=== PATIENT | male | born 1940 | race Hispanic/Latino ===

== ENCOUNTER 2016-08-11 09:45 | Outpatient (CLI) | payer MEDICARE ==
[2016-08-11 10:46] LABS: ALT (SGPT) 11 U/L (0-55); AST (SGOT) 13 U/L (5-34); Albumin 4.2 g/dL (3.4-4.8); Alkaline Phosphatase 75 U/L (40-150); Anion Gap 15 mmol/L (10-20); BUN (Urea Nitrogen) 14 mg/dL (8.4-25.7); Bilirubin, Total 0.4 mg/dL (0.2-1.2); Calc. Creatinine Clearance 0 mL/min (70-130); Calcium 9.4 mg/dL (7.8-10.44); Carbon Dioxide 27 mmol/L (23-31); Cardiac Risk 3.9 (Less than 4.5); Chloride 98 mmol/L (98-107); Cholesterol 106 mg/dL (< 200 Desired); Estimated GFR-MDRD 67; Globulin 3.3 g/dL (2.4-3.5); Glucose 169 mg/dL (83-110); HDL Cholesterol 27 mg/dL (>60 Neg Risk); LDL Cholesterol, Calculated 56 mg/dL; Potassium 4.6 mmol/L (3.5-5.1); Protein, Total 7.5 g/dL (5.8-8.1); Sodium 135 mmol/L (136-145); Triglycerides 116 mg/dL (Less than 150)
[2016-08-11 10:50] LABS: #Basophils 0.1 thou/uL (0.0-0.2); #Eosinphils 0.2 thou/uL (0.0-0.7); #Lymphocytes 2.4 thou/uL (1.20-3.40); #Monocytes 0.6 thou/uL (0.11-0.59); #Neutrophils 3.8 thou/uL (1.40-6.50); %Basophils 0.8 % (0.0-1.0); %Eosinophils 2.8 % (0.0-10.0); %Lymphocytes 33.7 % (21.0-51.0); %Monocytes 8.3 % (0.0-10.0); %Neutrophils 54.4 % (42.0-75.0); Hemoglobin 12.4 g/dL (14.0-18.0); Mean Corpuscular HGB CONC 33.3 g/dL (32.0-36.0); Mean Corpuscular Hemoglobin 28.9 pg (27.0-31.0); Mean Corpuscular Volume 86.8 fl (80.0-94.0); Mean Platelet Volume 7.2 fL (7.4-10.4); Platelet Count 329 thou/uL (130-400); RBC Distribution Width 13.1 % (11.5-14.5)
[2016-08-11 11:26] LABS: Hemoglobin A1c 7.9 % (4.0-6.0)
== END 2016-08-11 09:46 | disposition home or self-care (01) ==
LOC: HPCALD 09:45
PROVIDERS: ATTEND Family Medicine
DX: E11.9 Type 2 diabetes mellitus without complications (principal); I10 Essential (primary) hypertension; E78.5 Hyperlipidemia, unspecified
CPT/HCPCS: 36415; 80053; 80061; 83036; 85025

== ENCOUNTER 2019-04-02 13:33 | Inpatient (IN) | payer MEDICARE ==
[2019-04-02] MEDS ORDERED: Amlodipine 5 MG TAB PO SCH (15:45)
[2019-04-02] MEDS ORDERED: cloNIDine 0.1 MG TAB PO SCH (15:45)
[2019-04-02 15:59] VITALS: BMI 21.2
[2019-04-02] MEDS ORDERED: Gabapentin 300 MG CAP PO PRN (16:38)
[2019-04-02] MEDS: metFORMIN 500 MG TAB PO SCH (18:36)
[2019-04-02] MEDS ORDERED: Dextrose 5% in Water 1,000 ML IV PRN (18:45)
[2019-04-02] MEDS ORDERED: Dextrose 50% Abboject 50 ML SYRINGE IVP PRN (18:45)
[2019-04-02] MEDS: HumaLOG 300 UNITS/3 ML VIAL SC PRN ×2 (19:09→22:12)
[2019-04-02] MEDS: Lisinopril 20 MG TAB PO SCH (21:12)
[2019-04-02] MEDS: Atorvastatin Calcium 10 MG TAB PO SCH (21:12)
[2019-04-02] MEDS: Metoprolol Tartrate 25 MG TAB PO SCH (21:13)
[2019-04-03] MEDS: cloNIDine 0.1 MG TAB PO PRN (06:21)
[2019-04-03] MEDS: HumaLOG 300 UNITS/3 ML VIAL SC PRN ×3 (08:24→17:28)
[2019-04-03] MEDS: Lantus 1000 UNITS/10 ML VIAL SC SCH (08:58)
[2019-04-03] MEDS: metFORMIN 500 MG TAB PO SCH ×2 (09:01→17:02)
[2019-04-03] MEDS: Lisinopril 20 MG TAB PO SCH ×2 (09:02→21:01)
[2019-04-03] MEDS: Metoprolol Tartrate 25 MG TAB PO SCH ×2 (09:03→21:01)
[2019-04-03] MEDS: Amlodipine 5 MG TAB PO SCH (09:03)
[2019-04-03] MEDS: Atorvastatin Calcium 10 MG TAB PO SCH (21:02)
[2019-04-04] MEDS: Lisinopril 20 MG TAB PO SCH ×2 (08:56→20:49)
[2019-04-04] MEDS: Metoprolol Tartrate 25 MG TAB PO SCH ×2 (08:56→20:49)
[2019-04-04] MEDS: metFORMIN 500 MG TAB PO SCH ×2 (08:56→17:10)
[2019-04-04] MEDS: Amlodipine 5 MG TAB PO SCH (08:57)
[2019-04-04] MEDS: Lantus 1000 UNITS/10 ML VIAL SC SCH (08:58)
[2019-04-04] MEDS: HumaLOG 300 UNITS/3 ML VIAL SC PRN ×4 (09:03→20:56)
[2019-04-04] MEDS: Atorvastatin Calcium 10 MG TAB PO SCH (20:49)
[2019-04-05] MEDS: cloNIDine 0.1 MG TAB PO PRN (06:17)
[2019-04-05] MEDS ORDERED: Lantus 1000 UNITS/10 ML VIAL SC SCH (09:00)
[2019-04-05] MEDS: metFORMIN 500 MG TAB PO SCH ×2 (09:21→17:54)
[2019-04-05] MEDS: Lisinopril 20 MG TAB PO SCH ×2 (09:23→20:41)
[2019-04-05] MEDS: Metoprolol Tartrate 25 MG TAB PO SCH ×2 (09:23→20:40)
[2019-04-05] MEDS: HumaLOG 300 UNITS/3 ML VIAL SC PRN ×4 (09:24→21:02)
[2019-04-05] MEDS: Amlodipine 5 MG TAB PO SCH (09:24)
[2019-04-05] MEDS: Atorvastatin Calcium 10 MG TAB PO SCH (20:40)
[2019-04-06 06:08] VITALS: BP 160/67; TEMP 98
[2019-04-06] MEDS: Lisinopril 20 MG TAB PO SCH (08:37)
[2019-04-06] MEDS: Amlodipine 5 MG TAB PO SCH (08:37)
[2019-04-06] MEDS: metFORMIN 500 MG TAB PO SCH (08:38)
[2019-04-06] MEDS: HumaLOG 300 UNITS/3 ML VIAL SC PRN (08:39)
[2019-04-06] MEDS ORDERED: Lantus 1000 UNITS/10 ML VIAL SC SCH (09:00)
[2019-04-06] MEDS: Metoprolol Tartrate 25 MG TAB PO SCH (09:12)
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
== END 2019-04-06 12:20 | disposition home or self-care (01) | DRG 950 ==
LOC: BURMED 14:25
PROVIDERS: ADMIT Family Medicine; ATTEND Family Medicine
DX: S06.6X0D Traumatic subarachnoid hemorrhage without loss of consciousness, subsequent encounter (principal); Z79.4 Long term (current) use of insulin; Z91.14 Patient's other noncompliance with medication regimen; V89.2XXD Person injured in unspecified motor-vehicle accident, traffic, subsequent encounter; R53.81 Other malaise; Z90.49 Acquired absence of other specified parts of digestive tract; Z79.82 Long term (current) use of aspirin; Z79.84 Long term (current) use of oral hypoglycemic drugs; E11.65 Type 2 diabetes mellitus with hyperglycemia; I25.2 Old myocardial infarction
CPT/HCPCS: 36416; J1815

== ENCOUNTER 2019-09-15 20:25 | Emergency (ER) | payer MEDICARE ==
[2019-09-15] MEDS ORDERED: Adacel (T-DAP) 0.5 ML SYRINGE ONE (21:06)
[2019-09-15] MEDS ORDERED: Lidocaine 2% PF 5 ML VIAL ONE (21:06)
[2019-09-15] MEDS ORDERED: Bacitracin 1 PK ONE (21:06)
[2019-09-15] MEDS ORDERED: Cephalexin 250 MG CAP ONE (21:47)
== END 2019-09-15 21:47 | disposition home or self-care (01) ==
LOC: BURERS 20:25
DX: S61.216A Laceration without foreign body of right little finger without damage to nail, initial encounter (principal); I25.2 Old myocardial infarction; E11.9 Type 2 diabetes mellitus without complications; E78.5 Hyperlipidemia, unspecified; I10 Essential (primary) hypertension; Z23 Encounter for immunization; Z79.4 Long term (current) use of insulin; W26.8XXA Contact with other sharp object(s), not elsewhere classified, initial encounter
CPT/HCPCS: 12002; 90471; 90715; J2001

== ENCOUNTER 2020-12-02 23:49 | Inpatient (IN) | payer MEDICARE ==
[2020-12-03] MEDS ORDERED: Acetaminophen 325 MG TAB PO PRN (07:49)
[2020-12-03] MEDS ORDERED: Dextrose 5% in Water 1,000 ML IV PRN (07:55)
[2020-12-03] MEDS ORDERED: Dextrose 50% Abboject 50 ML SYRINGE SLOW IVP PRN (07:55)
[2020-12-03] MEDS: Lisinopril 20 MG TAB PO SCH ×2 (10:43→11:24)
[2020-12-03] MEDS: levETIRAcetam 250 MG TAB PO SCH ×2 (10:44→11:24)
[2020-12-03] MEDS: Metoprolol Tartrate 50 MG TAB PO SCH ×2 (10:44→11:25)
[2020-12-03] MEDS: Lantus 1000 UNITS/10 ML VIAL SC SCH (11:41)
[2020-12-03] MEDS: NIFEdipine XL 30 MG TAB PO SCH ×2 (12:06→14:10)
[2020-12-03] MEDS: HumaLOG 300 UNITS/3 ML VIAL SC PRN ×3 (12:15→21:05)
[2020-12-03] MEDS ORDERED: Metoprolol Tartrate 50 MG TAB PER TUBE SCH ×2 (13:15→21:00)
[2020-12-03] MEDS ORDERED: Lisinopril 20 MG TAB PER TUBE SCH (13:15)
[2020-12-03] MEDS ORDERED: levETIRAcetam 500 mg/5 ml Oral Solution PER TUBE SCH (13:15)
[2020-12-03] MEDS: Lisinopril 20 MG TAB PER TUBE SCH ×2 (14:11→20:57)
[2020-12-03 14:45] VITALS: BMI 22.7
[2020-12-03] MEDS ORDERED: cloNIDine 0.1 MG TAB PER TUBE PRN (19:20)
[2020-12-03] MEDS: Metoprolol Tartrate 50 MG TAB PER TUBE SCH (20:57)
[2020-12-03] MEDS: Atorvastatin Calcium 10 MG TAB PER TUBE SCH (20:58)
[2020-12-03] MEDS: levETIRAcetam 500 mg/5 ml Oral Solution PER TUBE SCH (20:58)
[2020-12-03] MEDS ORDERED: Atorvastatin Calcium 10 MG TAB PO SCH (21:00)
[2020-12-03 22:52] LABS: SARS-CoV-2 PCR by NAA Not Detected (NotDetected)
[2020-12-04] MEDS: Lantus 1000 UNITS/10 ML VIAL SC SCH (11:17)
[2020-12-04] MEDS: Pantoprazole 40 MG GRANULES PACKET PER TUBE SCH (11:18)
[2020-12-04] MEDS: Metoprolol Tartrate 50 MG TAB PER TUBE SCH ×3 (11:19→21:39)
[2020-12-04] MEDS: Lisinopril 20 MG TAB PER TUBE SCH ×2 (11:20→21:42)
[2020-12-04] MEDS: HumaLOG 300 UNITS/3 ML VIAL SC PRN ×4 (11:20→21:44)
[2020-12-04] MEDS: levETIRAcetam 500 mg/5 ml Oral Solution PER TUBE SCH ×2 (11:20→21:34)
[2020-12-04] MEDS: NIFEdipine XL 30 MG TAB PO SCH (11:55)
[2020-12-04] MEDS: Atorvastatin Calcium 10 MG TAB PER TUBE SCH (21:34)
[2020-12-05 05:01] LABS: #Basophils 0.1 thou/uL (0.0-0.2); #Eosinphils 0.4 thou/uL (0.0-0.7); #Lymphocytes 1.6 thou/uL (1.20-3.40); #Monocytes 0.8 thou/uL (0.11-0.59); %Basophils 0.8 % (0.0-1.0); %Eosinophils 2.9 % (0.0-10.0); %Lymphocytes 12.7 % (21.0-51.0); %Monocytes 6.2 % (0.0-10.0); %Neutrophils 77.4 % (42.0-75.0); Hemoglobin 12.2 g/dL (14.0-18.0); Mean Corpuscular HGB CONC 31.9 g/dL (32.0-36.0); Mean Corpuscular Hemoglobin 27.2 pg (27.0-31.0); Mean Corpuscular Volume 85.3 fL (78.0-98.0); Mean Platelet Volume 7.4 fL (7.4-10.4); Platelet Count 325 thou/uL (130-400); RBC Distribution Width 13.7 % (11.5-14.5); Red Blood Cell (RBC) Count 4.48 mill/uL (4.70-6.10); White Blood Cell (WBC) Count 12.9 thou/uL (4.8-10.8)
[2020-12-05 05:15] LABS: ALT (SGPT) 49 U/L (8-55); AST (SGOT) 35 U/L (5-34); Albumin 3.3 g/dL (3.4-4.8); Alkaline Phosphatase 160 U/L (40-110); Anion Gap 16 mmol/L (10-20); BUN (Urea Nitrogen) 45 mg/dL (8.4-25.7); Bilirubin, Total 0.5 mg/dL (0.2-1.2); Calc. Creatinine Clearance 44 mL/min (70-130); Calcium 9.2 mg/dL (7.8-10.44); Carbon Dioxide 26 mmol/L (23-31); Chloride 102 mmol/L (98-107); Globulin 3.5 g/dL (2.4-3.5); Glucose 353 mg/dL (83-110); Potassium 4.4 mmol/L (3.5-5.1); Protein, Total 6.8 g/dL (5.8-8.1); Sodium 140 mmol/L (136-145)
[2020-12-05] MEDS: Lantus 1000 UNITS/10 ML VIAL SC SCH (09:21)
[2020-12-05] MEDS: levETIRAcetam 500 mg/5 ml Oral Solution PER TUBE SCH ×2 (09:23→20:43)
[2020-12-05] MEDS: Metoprolol Tartrate 50 MG TAB PER TUBE SCH ×2 (09:23→20:44)
[2020-12-05] MEDS: Lisinopril 20 MG TAB PER TUBE SCH ×2 (09:23→20:44)
[2020-12-05] MEDS: Pantoprazole 40 MG GRANULES PACKET PER TUBE SCH (09:24)
[2020-12-05] MEDS: HumaLOG 300 UNITS/3 ML VIAL SC PRN ×4 (09:25→20:45)
[2020-12-05] MEDS: NIFEdipine XL 30 MG TAB PO SCH (12:11)
[2020-12-05] MEDS: Atorvastatin Calcium 10 MG TAB PER TUBE SCH (20:44)
[2020-12-06] MEDS: Metoprolol Tartrate 50 MG TAB PER TUBE SCH ×2 (09:15→20:48)
[2020-12-06] MEDS: levETIRAcetam 500 mg/5 ml Oral Solution PER TUBE SCH ×2 (09:15→20:48)
[2020-12-06] MEDS: Pantoprazole 40 MG GRANULES PACKET PER TUBE SCH (09:15)
[2020-12-06] MEDS: Lantus 1000 UNITS/10 ML VIAL SC SCH (09:17)
[2020-12-06] MEDS: HumaLOG 300 UNITS/3 ML VIAL SC PRN ×3 (09:30→21:03)
[2020-12-06] MEDS: Lisinopril 20 MG TAB PER TUBE SCH ×2 (09:30→20:48)
[2020-12-06] MEDS: NIFEdipine XL 30 MG TAB PO SCH (17:05)
[2020-12-06] MEDS: Atorvastatin Calcium 10 MG TAB PER TUBE SCH (20:48)
[2020-12-07] MEDS: Lisinopril 20 MG TAB PER TUBE SCH ×2 (08:16→20:08)
[2020-12-07] MEDS: Acetaminophen 650 MG Suppository PR PRN (08:26)
[2020-12-07] MEDS: Amlodipine 5 MG TAB PO SCH (08:35)
[2020-12-07] MEDS: levETIRAcetam 500 mg/5 ml Oral Solution PER TUBE SCH ×2 (08:35→20:07)
[2020-12-07] MEDS: Pantoprazole 40 MG GRANULES PACKET PER TUBE SCH (08:35)
[2020-12-07] MEDS: Metoprolol Tartrate 50 MG TAB PER TUBE SCH ×2 (08:35→20:07)
[2020-12-07] MEDS: Lantus 1000 UNITS/10 ML VIAL SC SCH (08:36)
[2020-12-07] MEDS: HumaLOG 300 UNITS/3 ML VIAL SC PRN ×3 (08:37→20:06)
[2020-12-07] MEDS: Cefepime 1 GM in Sodium Chloride 0.9% 100 ML IVPB SCH (17:11)
[2020-12-07] MEDS: Atorvastatin Calcium 10 MG TAB PER TUBE SCH (20:08)
[2020-12-08] MEDS: Cefepime 1 GM in Sodium Chloride 0.9% 100 ML IVPB SCH ×3 (01:25→17:23)
[2020-12-08] MEDS: Metoprolol Tartrate 50 MG TAB PER TUBE SCH ×2 (08:25→21:11)
[2020-12-08] MEDS: Pantoprazole 40 MG GRANULES PACKET PER TUBE SCH (08:25)
[2020-12-08] MEDS: Lisinopril 20 MG TAB PER TUBE SCH ×2 (08:25→21:11)
[2020-12-08] MEDS: Amlodipine 5 MG TAB PO SCH (08:25)
[2020-12-08] MEDS: Lantus 1000 UNITS/10 ML VIAL SC SCH (08:26)
[2020-12-08] MEDS: levETIRAcetam 500 mg/5 ml Oral Solution PER TUBE SCH ×2 (08:26→21:11)
[2020-12-08] MEDS: HumaLOG 300 UNITS/3 ML VIAL SC PRN ×4 (08:27→21:24)
[2020-12-08] MEDS: Atorvastatin Calcium 10 MG TAB PER TUBE SCH (21:11)
[2020-12-09] MEDS: Cefepime 1 GM in Sodium Chloride 0.9% 100 ML IVPB SCH ×3 (02:23→17:22)
[2020-12-09] MEDS: Acetaminophen 650 MG Suppository PR PRN (05:05)
[2020-12-09] MEDS: Amlodipine 5 MG TAB PO SCH (09:11)
[2020-12-09] MEDS: Lisinopril 20 MG TAB PER TUBE SCH ×2 (09:11→20:46)
[2020-12-09] MEDS: Pantoprazole 40 MG GRANULES PACKET PER TUBE SCH (09:12)
[2020-12-09] MEDS: Metoprolol Tartrate 50 MG TAB PER TUBE SCH ×2 (09:12→20:48)
[2020-12-09] MEDS: levETIRAcetam 500 mg/5 ml Oral Solution PER TUBE SCH ×2 (09:12→20:43)
[2020-12-09] MEDS: HumaLOG 300 UNITS/3 ML VIAL SC PRN ×4 (09:13→21:53)
[2020-12-09] MEDS: Lantus 1000 UNITS/10 ML VIAL SC SCH (09:13)
[2020-12-09] MEDS: Atorvastatin Calcium 10 MG TAB PER TUBE SCH (20:44)
[2020-12-10] MEDS: Cefepime 1 GM in Sodium Chloride 0.9% 100 ML IVPB SCH ×3 (02:38→17:47)
[2020-12-10] MEDS: Metoprolol Tartrate 50 MG TAB PER TUBE SCH ×2 (10:33→20:49)
[2020-12-10] MEDS: Pantoprazole 40 MG GRANULES PACKET PER TUBE SCH (10:34)
[2020-12-10] MEDS: levETIRAcetam 500 mg/5 ml Oral Solution PER TUBE SCH ×2 (10:34→20:48)
[2020-12-10] MEDS: Amlodipine 5 MG TAB PO SCH (10:35)
[2020-12-10] MEDS: Lisinopril 20 MG TAB PER TUBE SCH ×2 (10:35→20:49)
[2020-12-10] MEDS: HumaLOG 300 UNITS/3 ML VIAL SC PRN ×4 (10:35→21:02)
[2020-12-10] MEDS: Lantus 1000 UNITS/10 ML VIAL SC SCH (10:36)
[2020-12-10] MEDS: Atorvastatin Calcium 10 MG TAB PER TUBE SCH (20:49)
[2020-12-11] MEDS: Cefepime 1 GM in Sodium Chloride 0.9% 100 ML IVPB SCH ×3 (02:23→18:11)
[2020-12-11] MEDS: Metoprolol Tartrate 50 MG TAB PER TUBE SCH ×2 (09:00→22:03)
[2020-12-11] MEDS: Lisinopril 20 MG TAB PER TUBE SCH ×2 (09:02→22:03)
[2020-12-11] MEDS: Amlodipine 5 MG TAB PO SCH (09:02)
[2020-12-11] MEDS: Pantoprazole 40 MG GRANULES PACKET PER TUBE SCH (09:03)
[2020-12-11] MEDS: levETIRAcetam 500 mg/5 ml Oral Solution PER TUBE SCH ×2 (09:03→22:03)
[2020-12-11] MEDS: Lantus 1000 UNITS/10 ML VIAL SC SCH (09:03)
[2020-12-11] MEDS: HumaLOG 300 UNITS/3 ML VIAL SC PRN ×4 (09:08→22:04)
[2020-12-11 18:39] LABS: SARS-CoV-2 PCR by NAA Not Detected (NotDetected)
[2020-12-11] MEDS: Atorvastatin Calcium 10 MG TAB PER TUBE SCH (22:04)
[2020-12-12] MEDS: Cefepime 1 GM in Sodium Chloride 0.9% 100 ML IVPB SCH (02:05)
[2020-12-12] MEDS: Pantoprazole 40 MG GRANULES PACKET PER TUBE SCH (09:03)
[2020-12-12] MEDS: levETIRAcetam 500 mg/5 ml Oral Solution PER TUBE SCH ×2 (09:03→21:12)
[2020-12-12] MEDS: Amlodipine 5 MG TAB PO SCH (09:03)
[2020-12-12] MEDS: Lisinopril 20 MG TAB PER TUBE SCH ×2 (09:04→21:12)
[2020-12-12] MEDS: Lantus 1000 UNITS/10 ML VIAL SC SCH (09:04)
[2020-12-12] MEDS: Metoprolol Tartrate 50 MG TAB PER TUBE SCH ×2 (09:04→21:12)
[2020-12-12] MEDS: HumaLOG 300 UNITS/3 ML VIAL SC PRN ×4 (09:05→21:13)
[2020-12-12] MEDS: Atorvastatin Calcium 10 MG TAB PER TUBE SCH (21:12)
[2020-12-13] MEDS: levETIRAcetam 500 mg/5 ml Oral Solution PER TUBE SCH ×2 (10:04→20:31)
[2020-12-13] MEDS: Metoprolol Tartrate 50 MG TAB PER TUBE SCH ×2 (10:04→20:32)
[2020-12-13] MEDS: Lisinopril 20 MG TAB PER TUBE SCH ×2 (10:05→20:32)
[2020-12-13] MEDS: Amlodipine 5 MG TAB PO SCH (10:05)
[2020-12-13] MEDS: Pantoprazole 40 MG GRANULES PACKET PER TUBE SCH (10:06)
[2020-12-13] MEDS: Lantus 1000 UNITS/10 ML VIAL SC SCH (10:07)
[2020-12-13] MEDS: HumaLOG 300 UNITS/3 ML VIAL SC PRN ×3 (13:15→20:32)
[2020-12-13] MEDS: Atorvastatin Calcium 10 MG TAB PER TUBE SCH (20:32)
[2020-12-14] MEDS: levETIRAcetam 500 mg/5 ml Oral Solution PER TUBE SCH ×2 (09:13→22:38)
[2020-12-14] MEDS: Pantoprazole 40 MG GRANULES PACKET PER TUBE SCH (09:13)
[2020-12-14] MEDS: Amlodipine 5 MG TAB PO SCH (09:13)
[2020-12-14] MEDS: Metoprolol Tartrate 50 MG TAB PER TUBE SCH ×2 (09:13→22:38)
[2020-12-14] MEDS: Lantus 1000 UNITS/10 ML VIAL SC SCH (09:14)
[2020-12-14] MEDS: Lisinopril 20 MG TAB PER TUBE SCH ×2 (09:14→22:38)
[2020-12-14] MEDS: HumaLOG 300 UNITS/3 ML VIAL SC PRN ×3 (13:50→23:23)
[2020-12-14] MEDS: Atorvastatin Calcium 10 MG TAB PER TUBE SCH (22:38)
[2020-12-15] MEDS: levETIRAcetam 500 mg/5 ml Oral Solution PER TUBE SCH ×2 (09:21→21:01)
[2020-12-15] MEDS: HumaLOG 300 UNITS/3 ML VIAL SC PRN ×2 (09:21→12:50)
[2020-12-15] MEDS: Metoprolol Tartrate 50 MG TAB PER TUBE SCH ×2 (09:22→21:02)
[2020-12-15] MEDS: Pantoprazole 40 MG GRANULES PACKET PER TUBE SCH (09:22)
[2020-12-15] MEDS: Lantus 1000 UNITS/10 ML VIAL SC SCH (09:22)
[2020-12-15] MEDS: Lisinopril 20 MG TAB PER TUBE SCH ×2 (09:23→23:02)
[2020-12-15] MEDS: Amlodipine 5 MG TAB PO SCH (09:23)
[2020-12-15] MEDS: Atorvastatin Calcium 10 MG TAB PER TUBE SCH (21:01)
[2020-12-16] MEDS: levETIRAcetam 500 mg/5 ml Oral Solution PER TUBE SCH (10:10)
[2020-12-16] MEDS: Lantus 1000 UNITS/10 ML VIAL SC SCH (10:10)
[2020-12-16] MEDS: Metoprolol Tartrate 50 MG TAB PER TUBE SCH (10:11)
[2020-12-16] MEDS: Lisinopril 20 MG TAB PER TUBE SCH (10:11)
[2020-12-16] MEDS: Pantoprazole 40 MG GRANULES PACKET PER TUBE SCH (10:11)
[2020-12-16] MEDS: Amlodipine 5 MG TAB PO SCH (10:12)
[2020-12-16] MEDS: HumaLOG 300 UNITS/3 ML VIAL SC PRN (12:12)
[2020-12-16 15:55] VITALS: BP 106/59; TEMP 97.7
== END 2020-12-16 17:35 | DRG 57 ==
LOC: BURMED 23:49
PROVIDERS: ADMIT Family Medicine; ATTEND Family Medicine
DX: I69.354 Hemiplegia and hemiparesis following cerebral infarction affecting left non-dominant side (principal); F01.51 Vascular dementia, unspecified severity, with behavioral disturbance; I25.10 Atherosclerotic heart disease of native coronary artery without angina pectoris; N18.30 Chronic kidney disease, stage 3 unspecified; I12.9 Hypertensive chronic kidney disease with stage 1 through stage 4 chronic kidney disease, or unspecified chronic kidney disease; E11.22 Type 2 diabetes mellitus with diabetic chronic kidney disease
CPT/HCPCS: 36415; 36416; 71045; 80053; 85025; J0692; J1815; J3490; U0003; U0005

== ENCOUNTER 2020-12-07 08:54 | Emergency (ER) | payer MEDICARE ==
[2020-12-07 09:13] LABS: #Basophils 0.1 thou/uL (0.0-0.2); #Eosinphils 0.2 thou/uL (0.0-0.7); #Lymphocytes 1.6 thou/uL (1.20-3.40); #Monocytes 0.8 thou/uL (0.11-0.59); #Neutrophils 8.2 thou/uL (1.40-6.50); %Basophils 0.8 % (0.0-1.0); %Eosinophils 1.5 % (0.0-10.0); %Lymphocytes 14.7 % (21.0-51.0); %Monocytes 7.6 % (0.0-10.0); %Neutrophils 75.4 % (42.0-75.0); Hemoglobin 12.3 g/dL (14.0-18.0); Mean Corpuscular HGB CONC 32.5 g/dL (32.0-36.0); Mean Corpuscular Hemoglobin 27.4 pg (27.0-31.0); Mean Corpuscular Volume 84.5 fL (78.0-98.0); Mean Platelet Volume 8.2 fL (7.4-10.4); Platelet Count 371 thou/uL (130-400); RBC Distribution Width 13.1 % (11.5-14.5); White Blood Cell (WBC) Count 10.8 thou/uL (4.8-10.8)
[2020-12-07] MEDS ORDERED: Sodium Chloride 0.9% 100 ML ONE (09:24)
[2020-12-07] MEDS ORDERED: Cefepime 2 GM VIAL ONE (09:24)
[2020-12-07 09:31] LABS: ALT (SGPT) 57 U/L (8-55); AST (SGOT) 42 U/L (5-34); Alkaline Phosphatase 125 U/L (40-110); Anion Gap 15 mmol/L (10-20); BUN (Urea Nitrogen) 38 mg/dL (8.4-25.7); Bilirubin, Total 0.5 mg/dL (0.2-1.2); Calc. Creatinine Clearance 0 mL/min (70-130); Calcium 8.6 mg/dL (7.8-10.44); Carbon Dioxide 27 mmol/L (23-31); Chloride 98 mmol/L (98-107); Globulin 4.1 g/dL (2.4-3.5); Glucose 382 mg/dL (83-110); Potassium 5.4 mmol/L (3.5-5.1); Protein, Total 7.1 g/dL (5.8-8.1); Sodium 135 mmol/L (136-145)
[2020-12-07 10:14] LABS: Bilirubin Negative (Negative); Blood, Urine Negative (Negative); Clarity Clear (Clear); Glucose, Urine (Dipstick) 500 mg/dL (Negative); Ketone, Urine Negative (Negative); Leukocyte Negative (Negative); Nitrite Negative (Negative); Protein, Urine (Dipstick) 30 mg/dL (Neg-Trace); Specific Gravity, Urine 1.015 (1.005-1.030); Urobilinogen 0.2 mg/dL (Less than 2)
[2020-12-07 10:22] LABS: Bacteria/HPF Rare-Few HPF (None Seen); RBC/HPF 0-3 HPF (0-3); WBC/HPF 0-3 HPF (0-3)
[2020-12-07 12:07] LABS: SARS-CoV-2 NAA Rapid Test Not Detected (NotDetected)
== END 2020-12-07 12:40 | disposition critical access hospital (66) ==
LOC: BURERS 08:54
DX: R50.9 Fever, unspecified (principal); I25.2 Old myocardial infarction; E11.9 Type 2 diabetes mellitus without complications; I10 Essential (primary) hypertension; E78.5 Hyperlipidemia, unspecified; I25.10 Atherosclerotic heart disease of native coronary artery without angina pectoris; Z79.4 Long term (current) use of insulin; Z20.822 Contact with and (suspected) exposure to COVID-19; Z87.891 Personal history of nicotine dependence; Z79.899 Other long term (current) drug therapy
CPT/HCPCS: 36415; 36416; 71045; 80053; 81003; 81015; 83605; 83880; 84484; 85025; 87040; 87086; 93005; 96365; J0692; J3490; U0002

== ENCOUNTER 2021-01-18 22:28 | Outpatient (CLI) | payer MEDICARE ==
[2021-01-18 22:44] LABS: Bilirubin Negative (Negative); Blood, Urine Large (Negative); Clarity Clear (Clear); Glucose, Urine (Dipstick) Negative (Negative); Ketone, Urine Negative (Negative); Leukocyte Negative (Negative); Nitrite Negative (Negative); Protein, Urine (Dipstick) > or equal to 300 mg/dL (Neg-Trace)
== END 2021-01-18 22:29 | disposition home or self-care (01) ==
LOC: BURMANOR 22:28
PROVIDERS: ATTEND Family Medicine
DX: N18.30 Chronic kidney disease, stage 3 unspecified (principal)
CPT/HCPCS: 81003; 87086

== ENCOUNTER 2021-06-25 16:35 | Outpatient (CLI) | payer MEDICARE ==
[2021-06-25 16:44] LABS: Bilirubin Negative (Negative); Blood, Urine Negative (Negative); Clarity Clear (Clear); Glucose, Urine (Dipstick) Negative (Negative); Ketone, Urine Trace mg/dL (Negative); Leukocyte Negative (Negative); Nitrite Negative (Negative); Protein, Urine (Dipstick) Negative (Neg-Trace); Specific Gravity, Urine 1.015 (1.005-1.030); pH, Urine 5.5 (5.0-9.0)
== END 2021-06-25 16:36 | disposition home or self-care (01) ==
LOC: BURMANOR 16:35
PROVIDERS: ATTEND Nurse Practitioner Family
DX: R41.82 Altered mental status, unspecified (principal)
CPT/HCPCS: 81003

== ENCOUNTER 2021-07-20 12:33 | Outpatient (CLI) | payer MEDICARE ==
[2021-07-20 13:04] LABS: Mean Corpuscular Hemoglobin 27.7 pg (27.0-31.0); Mean Corpuscular Volume 83.9 fL (78.0-98.0); Mean Platelet Volume 8.1 fL (7.4-10.4); Platelet Count 333 thou/uL (130-400); RBC Distribution Width 14.1 % (11.5-14.5); Red Blood Cell (RBC) Count 3.97 mill/uL (4.70-6.10); White Blood Cell (WBC) Count 9.5 thou/uL (4.8-10.8)
[2021-07-20 13:36] LABS: ALT (SGPT) 22 U/L (8-55); AST (SGOT) 19 U/L (5-34); Albumin 3.4 g/dL (3.4-4.8); Alkaline Phosphatase 139 U/L (40-110); Anion Gap 17 mmol/L (10-20); BUN (Urea Nitrogen) 70 mg/dL (8.4-25.7); Bilirubin, Total 0.3 mg/dL (0.2-1.2); Calc. Creatinine Clearance 0 mL/min (70-130); Calcium 8.9 mg/dL (7.8-10.44); Carbon Dioxide 28 mmol/L (23-31); Chloride 96 mmol/L (98-107); Globulin 3.5 g/dL (2.4-3.5); Glucose 153 mg/dL (83-110); Potassium 5.4 mmol/L (3.5-5.1); Protein, Total 6.9 g/dL (5.8-8.1); Sodium 136 mmol/L (136-145)
== END 2021-07-20 12:34 | disposition home or self-care (01) ==
LOC: BURMANOR 12:33
PROVIDERS: ATTEND Nurse Practitioner Family
DX: L97.511 Non-pressure chronic ulcer of other part of right foot limited to breakdown of skin (principal); I25.10 Atherosclerotic heart disease of native coronary artery without angina pectoris
CPT/HCPCS: 80053; 85027

== ENCOUNTER 2021-07-22 08:07 | Outpatient (CLI) | payer MEDICARE ==
[2021-07-22 08:18] LABS: Hemoglobin 10.4 g/dL (14.0-18.0); Mean Corpuscular HGB CONC 33.1 g/dL (32.0-36.0); Mean Corpuscular Hemoglobin 27.2 pg (27.0-31.0); Mean Platelet Volume 8.1 fL (7.4-10.4); Platelet Count 285 thou/uL (130-400); RBC Distribution Width 14.1 % (11.5-14.5); Red Blood Cell (RBC) Count 3.83 mill/uL (4.70-6.10); White Blood Cell (WBC) Count 9.9 thou/uL (4.8-10.8)
[2021-07-22 08:33] LABS: ALT (SGPT) 21 U/L (8-55); AST (SGOT) 18 U/L (5-34); Albumin 3.1 g/dL (3.4-4.8); Alkaline Phosphatase 165 U/L (40-110); Anion Gap 14 mmol/L (10-20); BUN (Urea Nitrogen) 64 mg/dL (8.4-25.7); Bilirubin, Total 0.2 mg/dL (0.2-1.2); Calc. Creatinine Clearance 0 mL/min (70-130); Calcium 8.6 mg/dL (7.8-10.44); Carbon Dioxide 31 mmol/L (23-31); Chloride 98 mmol/L (98-107); Globulin 3.4 g/dL (2.4-3.5); Glucose 82 mg/dL (83-110); Potassium 4.1 mmol/L (3.5-5.1); Protein, Total 6.5 g/dL (5.8-8.1); Sodium 139 mmol/L (136-145)
== END 2021-07-22 08:08 | disposition home or self-care (01) ==
LOC: BURMANOR 08:07
PROVIDERS: ATTEND Nurse Practitioner Family
DX: Z01.812 Encounter for preprocedural laboratory examination (principal); E87.5 Hyperkalemia; Z20.822 Contact with and (suspected) exposure to COVID-19
CPT/HCPCS: 80053; 85027; U0003; U0005